=== PATIENT | female | born 1945 | race Caucasian/White ===

== ENCOUNTER 2023-11-09 16:25 | Inpatient (IN) ==
[2023-11-09] MEDS ORDERED: SODIUM CHLORIDE 0.9% 1,000 ML IV SCH (16:45)
[2023-11-09 17:05] LABS: Basophils # (auto) 0.05 K/uL (0.00-0.20); Basophils % (auto) 0.3 %; Eosinophils # (auto) 0.01 K/uL (0.00-0.50); Eosinophils % (auto) 0.1 %; Hemoglobin 15.3 g/dl (12.0-16.0); Immature Granulocytes # (auto) 0.13 K/uL (0.01-0.20); Immature Granulocytes % (auto) 0.8 %; Lymphocytes # (auto) 0.67 K/uL (1.20-3.40); Lymphocytes % (auto) 3.9 %; Mean Corpuscular Hemoglobin 31.2 pg (25.0-34.0); Mean Corpuscular Hgb Conc 31.9 g/dL (32.0-36.0); Mean Platelet Volume 10.1 fL (9.4-12.4); Monocytes # (auto) 1.33 K/uL (0.11-0.59); Monocytes % (auto) 7.7 %; Neutrophils # (auto) 15.08 K/uL (1.40-6.50); Neutrophils % (auto) 87.2 %; Platelet Count 157 K/uL (130-400); RDW Coefficient of Variation 12.8 % (11.5-14.5); RDW Standard Deviation 45.5 fL (36.4-46.3); White Blood Count 17.27 K/ul (4.8-10.8)
[2023-11-09] MEDS ORDERED: ACETAMINOPHEN 1,000 MG/100 ML VIAL IV STA (17:18)
[2023-11-09 17:20] LABS: Anion Gap 11 (3-11); BUN Creatinine Ratio 30.5 (10-20); Blood Urea Nitrogen 32 mg/dl (6-23); Calcium 9.8 mg/dl (8.6-10.3); Carbon Dioxide 25 mmol/L (21-32); Chloride 102 mmol/L (98-107); Est GFR (African American) 58.9 ml/min; Est GFR (Non-African American) 50.8 ml/min; Glucose 150 mg/dl (70-99(Fasting)); Potassium 3.8 mmol/L (3.5-5.1); Sodium 138 mmol/L (136-145)
[2023-11-09 17:23] LABS: Alanine Aminotransferase 19 U/L (7-52); Albumin Globulin Ratio 1.2 (0.9-2); Albumin Level 4.4 gm/dl (3.4-5.0); Alkaline Phosphatase 76 U/L (34-104); Aspartate Aminotransferase 23 U/L (13-39); Creatine Kinase 89 U/L (26-192); Globulin 3.7 gm/dl (2.5-4.0); Magnesium 0.8 mg/dl (1.7-2.4); Total Protein 8.1 gm/dl (6.0-8.3)
[2023-11-09 17:25] LABS: Troponin I High Sensitivity 16.8 pg/ml (0-14)
--- NOTE | 2023-11-09 17:29 | CT Scan Report ---
CT head/brain wo con CLINICAL HISTORY: fall Technique: Contiguous axial CT images of the head were acquired from the base of the skull to the aftab johan without intravenous contrast administration. Images were viewed in brain, subdural and bone [facility]. Automated dose lowering techniques and/or adjustment according to patient size were utilized for this exam. Comparison: None available at the time of this dictation. Findings: The ventricles, basal cisterns, and cerebral sulci are normal. There is no acute intracranial hemorrh age or evidence of acute territorial infarction. Neither mass effect, shift of the midline structures , nor abnormal extra-axial fluid collections are shown. Imaged portions of the paranasal sinuses and mastoid air cells are clear. The orbits appear normal. There are no acute fractures of the calvaria or scalp swelling. Impression: No acute intracranial hemorrhage, no evidence of acute territorial infarction or other acute intracra nial disease process. ACT 112: Negative or not required by law. Electronically signed by: Moi Sidhu M.D. 11/09/2023 5:28 PM
[2023-11-09 17:35] LABS: Thyroid Stimulating Hormone 0.629 uIu/ml (0.300-4.500)
--- NOTE | 2023-11-09 17:36 | CT Scan Report ---
CT cervical spine wo con CLINICAL HISTORY: fall TECHNIQUE: Multidetector row helical CT of the cervical spine was performed without administration of intravenous contrast. Coronal and sagittal reformations were obtained. Automated dose lowering techn iques and/or adjustment according to patient size were utilized for this exam. Comparison: None available at the time of this dictation. FINDINGS: No acute fractures or subluxations are identified. Degenerative changes are seen in the visualized sp ine. The alignment is normal. Soft tissues are unremarkable. IMPRESSION: Degenerative changes without evidence of acute bony injury. ACT 112: Negative or not required by law. Electronically signed by: Moi Sidhu M.D. 11/09/2023 5:33 PM
[2023-11-09] MEDS ORDERED: CEFEPIME 2,000 MG/20 ML VIAL IV STA (17:37)
--- NOTE | 2023-11-09 17:53 | XRay Report ---
XR chest 1V portable CLINICAL HISTORY: weakness TECHNIQUE: Single frontal radiograph of the chest was obtained. Comparison: None available at the time of this dictation. FINDINGS: No lines and tubes are seen. Calcified aortic knob is seen. The lungs are clear. No evidence of pleur al effusion or pneumothorax. IMPRESSION: No acute chest disease. ACT 112: Negative or not required by law. Electronically signed by: Moi Sidhu M.D. 11/09/2023 5:52 PM
--- NOTE | 2023-11-09 18:28 | CT Scan Report ---
CT thoracic spine wo con CLINICAL HISTORY: upper back pain, fall TECHNIQUE: Multidetector row helical CT of the thoracic spine was performed without administration of intravenous contrast. Coronal and sagittal reformations were obtained. Automated dose lowering techn iques and/or adjustment according to patient size were utilized for this exam. CT DOSE: 1009.64 mGy.cm Comparison: Comparison is made to CT chest radiation therapy 09/18/2023 FINDINGS: No acute fractures are identified. Compression deformity of the T12 vertebral body is again seen. Barbara tebral body alignment is within normal limits. Airspace opacity in the medial left lower lobe. IMPRESSION: 1. No acute fracture is seen. Old fracture of L1 is noted. 2. Airspace opacities in the medial left lower lobe may represent pneumonia and/or aspiration. ACT 112: Negative or not required by law. Electronically signed by: Moi Sidhu M.D. 11/09/2023 6:26 PM
[2023-11-09] MEDS: MAGNESIUM SULFATE / D5W 1 GM/100 ML BAG IV SCH ×3 (18:47→22:31)
[2023-11-09] MEDS ORDERED: VANCOMYCIN HCL 1,250 MG in SODIUM CHLORIDE 0.9% 500 ML IV ONE (18:49)
[2023-11-09] MEDS ORDERED: DOXYCYCLINE HYCLATE 100 MG in DEXTROSE 5% MINI-B 100 ML IV STA (18:49)
[2023-11-09] MEDS ORDERED: VANCOMYCIN CONSULT ACTIVE PRN (18:49)
[2023-11-09 19:02] LABS: Appearance Urine Cloudy (Clear); Bacteria Urine Automated Negative (Negative); Bilirubin Urine Negative (Negative); Blood Urine Negative (Negative); Color Urine Dark Yellow; Glucose Urine UA Negative (Negative); Ketones Urine 1+ (Negative); Leukocyte Esterase Urine Negative (Negative); Nitrite Urine Negative (Negative); Protein Urine 2+ (Negative); RBC Urine Automated 0-4 /hpf (0-4); Specific Gravity Urine 1.023 (1.000-1.030); Urobilinogen Urine Negative (Negative); pH Urine 5.5 (4.5-7.5)
[2023-11-09 19:17] LABS: Renal Epithelial Cells Urine 0-5 /lpf (0-5)
[2023-11-09 19:18] LABS: Epithelial Cell Urine Auto 20-30 /lpf (0-5)
[2023-11-09] MEDS ORDERED: LACTATED RINGER'S 1,000 ML IV ONE (19:51)
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
[2023-11-09 20:57] LABS: Adenovirus PCR Not Detected (NotDetected); Bordetella parapertussis PCR Not Detected (NotDetected); Bordetella pertussis PCR Not Detected (NotDetected); Chlamydia pneumoniae PCR Not Detected (NotDetected); Coronavirus 229E PCR Not Detected (NotDetected); Coronavirus CoV-2 (COVID19)PCR Not Detected (NotDetected); Coronavirus HKU1 PCR Not Detected (NotDetected); Coronavirus NL63 PCR Not Detected (NotDetected); Coronavirus OC43PCR Not Detected (NotDetected); Human Metapneumovirus PCR Not Detected (NotDetected); Influenza A PCR Not Detected (NotDetected); Influenza B PCR Not Detected (NotDetected); Mycoplasma pneumoniae PCR Not Detected (NotDetected); Parainfluenza Virus 1 PCR Not Detected (NotDetected); Parainfluenza Virus 2 PCR Not Detected (NotDetected); Parainfluenza Virus 3 PCR Not Detected (NotDetected); Parainfluenza Virus 4 PCR Not Detected (NotDetected); Respiratory Syncytial VirusPCR Not Detected (NotDetected); Rhinovirus/Enterovirus PCR Not Detected (NotDetected)
[2023-11-09] MEDS ORDERED: GLUCOSE 10 TAB/TUBE PO PRN (21:44)
[2023-11-09] MEDS ORDERED: NON-FORMULARY MEDICATION (Budesonide-Glycopyr-Formoterol [Breztri Aerosphere] 160-9-4.8 mc INH SCH (21:44)
[2023-11-09] MEDS ORDERED: DEXTROSE 50% 50 ML SYRINGE IV PRN (21:44)
[2023-11-09] MEDS ORDERED: GLUCOSE 40% GEL 15 GM TUBE PO PRN (21:44)
[2023-11-09] MEDS ORDERED: ACETAMINOPHEN 325 MG TAB PO PRN (21:44)
[2023-11-09] MEDS ORDERED: CARBOHYDRATES FOR HYPOGLYCEMIA PO PRN (21:44)
[2023-11-09] MEDS ORDERED: GLUCAGON FOR INJ 1 MG VIAL SQ PRN (21:44)
[2023-11-09] MEDS ORDERED: IPRATROPIUM BROMIDE NEB SOLN 0.02% 0.5MG/2.5ML VIAL INH PRN (21:44)
[2023-11-09] MEDS ORDERED: ONDANSETRON INJ 2 MG/ML 2 ML VIAL IV PRN (21:44)
[2023-11-09] MEDS: INSULIN ASPART PER UNIT CHARGE SC SCH (22:18)
[2023-11-09] MEDS: ENOXAPARIN INJ 40 MG/0.4 ML SYR SQ SCH (22:24)
[2023-11-09] MEDS: cefTRIAXone SODIUM 1,000 MG in DEXTROSE 5 % MINI-B 50 ML IV SCH (22:28)
[2023-11-09] MEDS: SODIUM CHLORIDE 0.9% 1,000 ML IV SCH (22:35)
[2023-11-09 23:40] LABS: Phosphorus 2.5 mg/dl (2.5-4.9)
[2023-11-09 23:47] LABS: Troponin I High Sensitivity 26.5 pg/ml (0-14)
[2023-11-10] MEDS: MAGNESIUM SULFATE / D5W 1 GM/100 ML BAG IV SCH ×3 (00:32→04:46)
[2023-11-10 04:01] LABS: Hematocrit (blood only) 39.7 % (37.0-47.0); Hemoglobin 12.6 g/dl (12.0-16.0); Mean Corpuscular Hgb Conc 31.7 g/dL (32.0-36.0); Mean Corpuscular Volume 97.5 fL (80.0-100.0); Platelet Count 128 K/uL (130-400); RDW Coefficient of Variation 12.7 % (11.5-14.5); RDW Standard Deviation 45.6 fL (36.4-46.3); Red Blood Count 4.07 M/uL (4.20-5.40); White Blood Count 16.33 K/ul (4.8-10.8)
[2023-11-10 04:17] LABS: BUN Creatinine Ratio 30.5 (10-20); Creatinine Clr Calc Pharmacy 48.3 ml/min; Est GFR (African American) 79.4 ml/min; Est GFR (Non-African American) 68.5 ml/min; Magnesium 2.1 mg/dl (1.7-2.4); Potassium 3.4 mmol/L (3.5-5.1)
[2023-11-10] MEDS ORDERED: VANCOMYCIN HCL 1,000 MG in SODIUM CHLORIDE 0.9% 250 ML IV SCH (06:00)
[2023-11-10] MEDS: DOXYCYCLINE HYCLATE 100 MG in DEXTROSE 5% MINI-B 100 ML IV SCH ×2 (06:36→17:11)
[2023-11-10] MEDS: SODIUM CHLORIDE 0.9% 1,000 ML IV SCH ×3 (06:37→21:58)
[2023-11-10 07:40] LABS: Estimated Average Glucose 137 mg/dl; Hemoglobin A1C 6.4 % (4.5-5.6)
[2023-11-10] MEDS: INSULIN ASPART PER UNIT CHARGE SC SCH ×4 (08:43→22:01)
--- NOTE | 2023-11-10 08:55 | Pharmacy Report ---
Pharmacy PK ABX Note - Date of Service November 10, 2023 - Assessment and Plan Assessment 78 year old F started on vancomycin. Presenting with confusion, generalized weakness and concerns for possible pneumonia. Blood culture and urine culture pending. Leukocytosis trending downward, afebrile. Day # 2 of antimicrobial therapy. Plan Vancomycin * Loading dose: 1250 mg iv x 1 (given in ER 11/09) * Maintenance dose: Started on vancomycin 1000 mg iv q 24 hours * Regimen is predicted to achieve target AUC/ANA of 400-600 mg/L.hr * Plan to order random vancomycin level if continued >48 hours Pharmacy will continue to follow and will adjust dose/frequency as necessary. Thank you. Pharmacy has transitioned to AUC monitoring for vancomycin. AUC/ANA is the preferred PK/PD target and is associated with decreased risk of nephrotoxicity compared to traditional trough targets.
[2023-11-10] MEDS: UMECLIDINIUM/VILANTEROL 62.5/25MCG 7 PUFFS/INHALER INH SCH (09:05)
[2023-11-10] MEDS: SERTRALINE HCL 50 MG TABLET PO SCH (09:05)
[2023-11-10] MEDS: FLUTICASONE FUROATE 200MCG 14 PUFFS/INHALER INH SCH (09:06)
--- NOTE | 2023-11-10 13:34 | Hospitalist Progress Note ---
Date of Service November 10, 2023 Assessment & Plan (1) Pneumonia: Plan: Possible cause for patient's confusion. She is presently afebrile, HD stable, non-toxic in appearance. Adequate oxygenation on room air. Elevated WBC=17.27 Unusual presentation with only encephalopathy, leukocytosis, infiltrates on imaging Clinically improved with treatment for pneumonia Started on ceftriaxone and doxycycline for community-acquired pneumonia Improving on this current regimen Will continue this current regimen Discontinue vancomycin. MRSA swab negative. Leukocytosis improving Encephalopathy resolved Consult PT and OT Follow blood culture results (2) Acute metabolic encephalopathy: Plan: Most likely due to pneumonia Resolved Per daughter, patient is back to her usual baseline (3) COPD (chronic obstructive pulmonary disease): Plan: Chronic. Adequate breath sounds on exam, no wheeze -Continue Umeclidinium/Vilanterol -Fluticasone daily -Albuterol PRN Patient still smokes. Smoking cessation advised (4) Hypertension: Plan: Holding antihypertensives for now - had some lower blood pressures in the ER. LR x 1L bolus given -Resume Losartan, Spironolactone and Verapamil in AM if blood pressure allows (5) Hypomagnesemia: Plan: Resolved Plan Ppx - Lovenox for DVT ppx Code - Full per discussion with patient Admission and Anticipated Discharge Date Admission Date: November 09, 2023 Subjective Patient feels better overall. Denies chest pain or shortness of breath. Daughter is at the bedside and says that her mental status is back to her usual baseline. She is no more confused. The patient tells me that she does not have an appetite and feels weak in general. Review of Systems Review of Systems: All systems reviewed & are unremarkable except as noted in Subjective Physical Exam Physical Exam: General: Awake, conversant Heart: S1, S2/regular rate and rhythm, no murmur rubs or gallops Lungs: Diminished breath sounds bilaterally. Normal effort Abdomen: Soft/nontender/nondistended. No hepatosplenomegaly Extremities: No clubbing/cyanosis. No edema Behavior: Appropriate, cooperative Results & Data Results & Data Vital Signs (Past 12 Hours) Vital Signs Temp Pulse Pulse Resp BP Pulse Ox O2 Del Method 11/10/23 11:44 37.5 C 74 16 95/55 L 92 Room Air 11/10/23 08:20 37.0 C 86 18 106/45 L 98 Room Air 11/10/23 07:56 Room Air 11/10/23 05:58 76 11/10/23 04:46 37.3 C 75 20 110/68 93 Room Air Laboratory Results Abnormal lab results 11/09/23 11/09/23 11/09/23 Range/Units 16:43 18:28 22:14 WBC 17.27 H (4.8-10.8) K/ul RBC (4.20-5.40) M/uL Hct 48.0 H (37.0-47.0) % MCHC 31.9 L (32.0-36.0) g/dL Plt Count (130-400) K/uL Neut # (Auto) 15.08 H (1.40-6.50) K/uL Lymph # (Auto) 0.67 L (1.20-3.40) K/uL Armstrong # (Auto) 1.33 H (0.11-0.59) K/uL Potassium (3.5-5.1) mmol/L Chloride (98-107) mmol/L BUN 32 H (6-23) mg/dl BUN/Creatinine Ratio 30.5 H (10-20) Glucose 150 H (70-99(Fasting)) mg/dl POC Glucose 164 H (70-99) mg/dl Hemoglobin A1c (4.5-5.6) % Calcium (8.6-10.3) mg/dl Magnesium 0.8 L* (1.7-2.4) mg/dl Troponin I High Sens 16.8 H (0-14) pg/ml Urine Appearance Cloudy A (Clear) Urine Protein 2+ H (Negative) Urine Ketones 1+ H (Negative) Urine WBC (Auto) 5-10 H (0-5) /hpf U Epithel Cells (Auto) 20-30 H (0-5) /lpf Granular Casts 1-5 H (0) /lpf 11/09/23 11/10/23 11/10/23 Range/Units 22:25 03:39 09:32 WBC 16.33 H (4.8-10.8) K/ul RBC 4.07 L (4.20-5.40) M/uL Hct (37.0-47.0) % MCHC 31.7 L (32.0-36.0) g/dL Plt Count 128 L (130-400) K/uL Neut # (Auto) (1.40-6.50) K/uL Lymph # (Auto) (1.20-3.40) K/uL Armstrong # (Auto) (0.11-0.59) K/uL Potassium 3.4 L (3.5-5.1) mmol/L Chloride 108 H (98-107) mmol/L BUN 25 H (6-23) mg/dl BUN/Creatinine Ratio 30.5 H (10-20) Glucose 147 H (70-99(Fasting)) mg/dl POC Glucose (70-99) mg/dl Hemoglobin A1c 6.4 H (4.5-5.6) % Calcium 8.0 L (8.6-10.3) mg/dl Magnesium (1.7-2.4) mg/dl Troponin I High Sens 26.5 H 25.7 H 32.3 H (0-14) pg/ml Urine Appearance (Clear) Urine Protein (Negative) Urine Ketones (Negative) Urine WBC (Auto) (0-5) /hpf U Epithel Cells (Auto) (0-5) /lpf Granular Casts (0) /lpf 11/10/23 Range/Units 12:30 WBC (4.8-10.8) K/ul RBC (4.20-5.40) M/uL Hct (37.0-47.0) % MCHC (32.0-36.0) g/dL Plt Count (130-400) K/uL Neut # (Auto) (1.40-6.50) K/uL Lymph # (Auto) (1.20-3.40) K/uL Armstrong # (Auto) (0.11-0.59) K/uL Potassium (3.5-5.1) mmol/L Chloride (98-107) mmol/L BUN (6-23) mg/dl BUN/Creatinine Ratio (10-20) Glucose (70-99(Fasting)) mg/dl POC Glucose 118 H (70-99) mg/dl Hemoglobin A1c (4.5-5.6) % Calcium (8.6-10.3) mg/dl Magnesium (1.7-2.4) mg/dl Troponin I High Sens (0-14) pg/ml Urine Appearance (Clear) Urine Protein (Negative) Urine Ketones (Negative) Urine WBC (Auto) (0-5) /hpf U Epithel Cells (Auto) (0-5) /lpf Granular Casts (0) /lpf Diagnostic Findings Cervical Spine CT 11/09/23 16:44 CT cervical spine wo con CLINICAL HISTORY: fall TECHNIQUE: Multidetector row helical CT of the cervical spine was performed without administration of intravenous contrast. Coronal and sagittal reformations were obtained. Automated dose lowering techniques and/or adjustment according to patient size were utilized for this exam. Comparison: None available at the time of this dictation. FINDINGS: No acute fractures or subluxations are identified. Degenerative changes are seen in the visualized spine. The alignment is normal. Soft tissues are unremarkable. IMPRESSION: Degenerative changes without evidence of acute bony injury. ACT 112: Negative or not required by law. Electronically signed by: Moi Sidhu M.D. 11/09/2023 5:33 PM Chest X-Ray 11/09/23 16:44 XR chest 1V portable CLINICAL HISTORY: weakness TECHNIQUE: Single frontal radiograph of the chest was obtained. Comparison: None available at the time of this dictation. FINDINGS: No lines and tubes are seen. Calcified aortic knob is seen. The lungs are clear. No evidence of pleural effusion or pneumothorax. IMPRESSION: No acute chest disease. ACT 112: Negative or not required by law. Electronically signed by: Moi Sidhu M.D. 11/09/2023 5:[address] 11/09/23 16:44 CT head/brain wo con CLINICAL HISTORY: fall Technique: Contiguous axial CT images of the head were acquired from the base of the skull to the vertex without intravenous contrast administration. Images were viewed in brain, subdural and bone windows. Automated dose lowering techniques and/or adjustment according to patient size were utilized for this exam. Comparison: None available at the time of this dictation. Findings: The ventricles, basal cisterns, and cerebral sulci are normal. There is no acute intracranial hemorrhage or evidence of acute territorial infarction. Neither mass effect, shift of the midline structures, nor abnormal extra-axial fluid collections are shown. Imaged portions of the paranasal sinuses and mastoid air cells are clear. The orbits appear normal. There are no acute fractures of the calvaria or scalp swelling. Impression: No acute intracranial hemorrhage, no evidence of acute territorial infarction or other acute intracranial disease process. ACT 112: Negative or not required by law. Electronically signed by: Moi Sidhu M.D. 11/09/2023 5:[address] 11/09/23 17:16 CT thoracic spine wo con CLINICAL HISTORY: upper back pain, fall TECHNIQUE: Multidetector row helical CT of the thoracic spine was performed without administration of intravenous contrast. Coronal and sagittal reformations were obtained. Automated dose lowering techniques and/or adjustment according to patient size were utilized for this exam. CT DOSE: 1009.64 mGy.cm Comparison: Comparison is made to CT chest radiation therapy 09/18/2023 FINDINGS: No acute fractures are identified. Compression deformity of the T12 vertebral body is again seen. Vertebral body alignment is within normal limits. Airspace opacity in the medial left lower lobe. IMPRESSION: 1. No acute fracture is seen. Old fracture of L1 is noted. 2. Airspace opacities in the medial left lower lobe may represent pneumonia and/or aspiration. ACT 112: Negative or not required by law. Electronically signed by: Moi Sidhu M.D. 11/09/2023 6:26 PM PG Care Time/CCT Total # of Minutes Spent Total Time Spent with Patient: Total time spent is greater than 50% in coordination of care (as documented) at patient's floor/unit and/or counseling patient: Coding Level of Care Code 76008 SUB INP/OBS CARE 2/35MIN Diagnoses Pneumonia J18.9 Acute metabolic encephalopathy G93.41 COPD (chronic obstructive pulmonary disease) J44.9 Hypertension I10 Hypomagnesemia E83.42
[2023-11-10] MEDS: ALBUTEROL 0.083% NEBU SOLN 3 ML VIAL NEB PRN (16:13)
--- NOTE | 2023-11-10 16:26 | Electrocardiogram Report ---
Test Reason : Blood Pressure : / mmHG Vent. Rate : 122 BPM Atrial Rate : 122 BPM P-R Int : 152 ms QRS Dur : 076 ms QT Int : 282 ms P-R-T Axes : 078 -69 090 degrees QTc Int : 401 ms Sinus tachycardia Possible Left atrial enlargement Left anterior fascicular block Poor R wave progression, consider anterior MD vs. lead placement vs. LVH Abnormal ECG When compared with ECG of 14-AUG-2023 08:43, Vent. rate has increased BY 59 BPM Confirmed by Todd Fregoso ([id number]) on 11/10/2023 4:26:12 PM Referred By: REFERRED SELF Confirmed By:Chon Fregoso
[2023-11-10] MEDS: ENOXAPARIN INJ 40 MG/0.4 ML SYR SQ SCH (20:24)
[2023-11-10] MEDS: guaiFENesin 600 MG TABCR PO SCH (20:25)
[2023-11-10] MEDS: cefTRIAXone SODIUM 1,000 MG in DEXTROSE 5 % MINI-B 50 ML IV SCH (21:58)
[2023-11-11] MEDS: SODIUM CHLORIDE 0.9% 1,000 ML IV SCH ×3 (06:05→22:53)
[2023-11-11] MEDS: DOXYCYCLINE HYCLATE 100 MG in DEXTROSE 5% MINI-B 100 ML IV SCH ×2 (06:06→18:22)
[2023-11-11 06:15] LABS: Hemoglobin 11.1 g/dl (12.0-16.0); Mean Corpuscular Hemoglobin 31.7 pg (25.0-34.0); Mean Corpuscular Hgb Conc 32.6 g/dL (32.0-36.0); Mean Corpuscular Volume 97.1 fL (80.0-100.0); Mean Platelet Volume 10.5 fL (9.4-12.4); Platelet Count 119 K/uL (130-400); RDW Coefficient of Variation 12.8 % (11.5-14.5); White Blood Count 9.22 K/ul (4.8-10.8)
[2023-11-11 06:32] LABS: BUN Creatinine Ratio 22.2 (10-20); Calcium 7.6 mg/dl (8.6-10.3); Est GFR (Non-African American) 80.2 ml/min; Potassium 3.5 mmol/L (3.5-5.1)
[2023-11-11] MEDS: FLUTICASONE FUROATE 200MCG 14 PUFFS/INHALER INH SCH (09:04)
[2023-11-11] MEDS: SERTRALINE HCL 50 MG TABLET PO SCH (09:05)
[2023-11-11] MEDS: guaiFENesin 600 MG TABCR PO SCH ×2 (09:05→21:30)
[2023-11-11] MEDS: UMECLIDINIUM/VILANTEROL 62.5/25MCG 7 PUFFS/INHALER INH SCH (09:05)
[2023-11-11] MEDS: INSULIN ASPART PER UNIT CHARGE SC SCH ×4 (09:13→21:31)
--- NOTE | 2023-11-11 16:01 | Hospitalist Progress Note ---
Date of Service November 11, 2023 Assessment & Plan (1) Pneumonia: Plan: Possible cause for patient's confusion. She is presently afebrile, HD stable, non-toxic in appearance. Adequate oxygenation on room air. Elevated WBC=17.27 Unusual presentation with only encephalopathy, leukocytosis, infiltrates on imaging Clinically improved with treatment for pneumonia Started on ceftriaxone and doxycycline for community-acquired pneumonia Improving on this current regimen Will continue this current regimen Discontinued vancomycin. MRSA swab negative. Leukocytosis resolved Encephalopathy resolved Consult PT and OT Follow blood culture results Check rest and exercise O2 (2) Acute metabolic encephalopathy: Plan: Most likely due to pneumonia Resolved Per daughter, patient is back to her usual baseline (3) COPD (chronic obstructive pulmonary disease): Plan: Chronic. Adequate breath sounds on exam, no wheeze -Continue Umeclidinium/Vilanterol -Fluticasone daily -Albuterol PRN Patient still smokes. Smoking cessation advised (4) Hypertension: Plan: Holding antihypertensives for now - had some lower blood pressures in the ER. LR x 1L bolus given -Resume Losartan, Spironolactone and Verapamil in AM if blood pressure allows (5) Hypomagnesemia: Plan: Resolved Plan Ppx - Lovenox for DVT ppx Code - Full per discussion with patient Admission and Anticipated Discharge Date Admission Date: November 09, 2023 Subjective Patient feels better overall. Says that she had been experiencing lower chest/upper back pain which is improving. Review of Systems Review of Systems: All systems reviewed & are unremarkable except as noted in Subjective Physical Exam Physical Exam: General: Awake, conversant Heart: S1, S2/regular rate and rhythm, no murmur rubs or gallops Lungs: Diminished breath sounds bilaterally. Normal effort Abdomen: Soft/nontender/nondistended. No hepatosplenomegaly Extremities: No clubbing/cyanosis. No edema Behavior: Appropriate, cooperative Results & Data Results & Data Vital Signs (Past 12 Hours) Vital Signs Temp Pulse Pulse Resp BP BP Pulse Ox 11/11/23 15:50 36.9 C 66 18 128/66 92 11/11/23 15:14 92 11/11/23 13:37 11/11/23 08:13 62 11/11/23 08:00 11/11/23 07:41 36.8 C 57 L 16 130/59 L 93 11/11/23 04:17 37.0 C 71 20 112/67 92 Pulse Ox Pulse Ox O2 Del Method O2 Flow Rate O2 Flow Rate 11/11/23 15:50 Room Air 11/11/23 15:14 11/11/23 13:37 90 88 L 0 0 11/11/23 08:13 11/11/23 08:00 Room Air 11/11/23 07:41 Room Air 11/11/23 04:17 Room Air PG Care Time/CCT Total # of Minutes Spent Total Time Spent with Patient: Total time spent is greater than 50% in coordination of care (as documented) at patient's floor/unit and/or counseling patient: Coding Level of Care Code 05306 SUB INP/OBS CARE 2/35MIN Diagnoses Pneumonia J18.9 Acute metabolic encephalopathy G93.41 COPD (chronic obstructive pulmonary disease) J44.9 Hypertension I10 Hypomagnesemia E83.42
[2023-11-11] MEDS: ENOXAPARIN INJ 40 MG/0.4 ML SYR SQ SCH (21:29)
[2023-11-11] MEDS: cefTRIAXone SODIUM 1,000 MG in DEXTROSE 5 % MINI-B 50 ML IV SCH (21:37)
[2023-11-11] MEDS: ALBUTEROL 0.083% NEBU SOLN 3 ML VIAL NEB PRN (21:55)
[2023-11-12] MEDS: SODIUM CHLORIDE 0.9% 1,000 ML IV SCH (03:10)
[2023-11-12 04:16] VITALS: TEMP 97.7
[2023-11-12] MEDS: DOXYCYCLINE HYCLATE 100 MG in DEXTROSE 5% MINI-B 100 ML IV SCH (05:40)
[2023-11-12 06:12] LABS: Hematocrit (blood only) 36.2 % (37.0-47.0); Hemoglobin 12.1 g/dl (12.0-16.0); Mean Corpuscular Hgb Conc 33.4 g/dL (32.0-36.0); Mean Corpuscular Volume 95.8 fL (80.0-100.0); Mean Platelet Volume 10.4 fL (9.4-12.4); Platelet Count 139 K/uL (130-400); RDW Coefficient of Variation 12.8 % (11.5-14.5); RDW Standard Deviation 44.9 fL (36.4-46.3); Red Blood Count 3.78 M/uL (4.20-5.40); White Blood Count 5.62 K/ul (4.8-10.8)
[2023-11-12 06:27] LABS: BUN Creatinine Ratio 20.2 (10-20); Calcium 7.8 mg/dl (8.6-10.3); Creatinine Clr Calc Pharmacy 47.2 ml/min; Est GFR (African American) 77.2 ml/min; Est GFR (Non-African American) 66.6 ml/min; Potassium 3.9 mmol/L (3.5-5.1)
[2023-11-12] MEDS ORDERED: VERAPAMIL HCL 240 MG TABCR PO SCH (09:00)
[2023-11-12] MEDS ORDERED: LOSARTAN POTASSIUM 50 MG TAB PO SCH (09:00)
[2023-11-12] MEDS: guaiFENesin 600 MG TABCR PO SCH (09:27)
[2023-11-12] MEDS: UMECLIDINIUM/VILANTEROL 62.5/25MCG 7 PUFFS/INHALER INH SCH (09:27)
[2023-11-12] MEDS: SERTRALINE HCL 50 MG TABLET PO SCH (09:27)
[2023-11-12] MEDS: FLUTICASONE FUROATE 200MCG 14 PUFFS/INHALER INH SCH (09:28)
[2023-11-12] MEDS: INSULIN ASPART PER UNIT CHARGE SC SCH (09:31)
--- NOTE | 2023-11-12 11:02 | Discharge Summary ---
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 Patient was at home today in her usual state of health. Later in the day her daughter found her sitting in the middle of the living room floor - she was confused and generally weak. She has had some cough and shortness of breath. She admits to a subjective fever with sweating today prior to arrival. Otherwise she denies chest pain, palpitations, abdominal pain, nausea, vomiting, diarrhea or constipation. In the ER she is afebrile, tachycardic, adequate oxygenation on room air ER Course. Tylenol Cefepime Doxycycline Vancomycin Admission Exam Per Admitting Provider General: patient resting comfortably, NAD, non-toxic in appearance, AA&O x 3 Skin: warm, dry, intact, no rashes or lesions HEENT: NC/AT, PERRL, EOMI, anicteric sclera, conjunctiva without injection, external ear normal to inspection and nontender, nares patent, moist mucus membranes, dentition intact, no oropharyngeal lesions, neck supple, trachea midline, no LAD, no thyromegaly, no JVD Heart: +S1/S2, regular, tachycardic, no m/r/g Lungs: equal air entry bilaterally, diminshed breath sounds in left base with dullness to percussion Abd: +BS, soft, NT/ND, no masses/organomegaly/ascites Ext: warm, 2+ pulses in UE/LE bilaterally, no clubbing/cyanosis or edema Neuro: nonfocal, patient AA&O x 4, speech intact, no facial droop, moving all extremities on command with equal strength 5/5 Principal Diagnosis Left middle lobe community-acquired pneumonia Acute metabolic encephalopathy Discharge Exam General: Awake, conversant Heart: S1, S2/regular rate and rhythm, no murmur rubs or gallops Lungs: Diminished breath sounds bilaterally. Normal effort Abdomen: Soft/nontender/nondistended. No hepatosplenomegaly Extremities: No clubbing/cyanosis. No edema Behavior: Appropriate, cooperative Discharge Data Allergies Allergy/AdvReac Type Severity Reaction Status Date / Time amlodipine [From Norvasc] Allergy Severe Palpitation Verified 09/26/23 13:59 s furosemide [From Lasix] Allergy Severe Chest Pain Verified 09/26/23 13:59 Consultations 11/09/23 19:26 ED Decision to Admit Stat Ordered Studies 11/09/23 16:44 CT cervical spine wo con Stat CT head/brain wo con Stat 11/09/23 17:16 CT thoracic spine wo con Stat Hospital Course (1) Pneumonia: Possible cause for patient's confusion. She is presently afebrile, HD stable, non-toxic in appearance. Adequate oxygenation on room air. Elevated WBC=17.27 Unusual presentation with only encephalopathy, leukocytosis, infiltrates on imaging Clinically improved with treatment for pneumonia Started on ceftriaxone and doxycycline for community-acquired pneumonia. Will switch to p.o. Keflex and doxycycline to complete the course Improving on this current regimen Discontinued vancomycin. MRSA swab negative. Leukocytosis resolved Encephalopathy resolved PT/OT recommended home health services Blood cultures negative She is needing 3 L of oxygen on ambulation which has been arranged for (2) Acute metabolic encephalopathy: Most likely due to pneumonia Resolved Per daughter, patient is back to her usual baseline (3) COPD (chronic obstructive pulmonary disease): Chronic. Adequate breath sounds on exam, no wheeze -Continue Umeclidinium/Vilanterol -Fluticasone daily -Albuterol PRN Patient still smokes. Smoking cessation advised (4) Hypertension: Was holding all antihypertensives because of initial low blood pressures Today blood pressure was creeping up and thus was started on verapamil and losartan Continue to hold hydrochlorothiazide and spironolactone until seen by PCP outpatient (5) Hypomagnesemia: Resolved Plan Discharge to home with home health services today Total Time Total Time Spent Total Time Spent (In Minutes): 35 Discharge Plan Discharge Items Patient Disposition: Home - Home Health Services Reason For Visit: PNEUMONIA, WEAKNESS Discharge Diagnosis: Left middle lobe community-acquired pneumonia Acute metabolic encephalopathy Activity: Resume your previous activity Non-emergency contact: Primary Care Provider Call non-emergency contact if: you have any medication questions and your symptoms worsen Follow-up/Referrals: Augusto Romano DO [Primary Care Provider] - 11/14/23 11:15 am Diet: Heart Healthy Addtl Attending Provider Instructions: Advised to follow-up with PCP in 1 week Pending Studies at Discharge: No Stand-Alone Forms: My [employer], Smoking Cessation Medications and DC Order Prescriptions: New cephalexin 500 mg capsule 500 mg PO BID 4 Days Qty: 8 0RF doxycycline monohydrate 100 mg capsule 100 mg PO BID 3 Days Qty: 6 0RF Continued metformin 500 mg tablet 500 mg PO BID 90 Days Qty: 180 3RF ipratropium bromide 0.02 % solution 2.5 ml inhalation Q6H PRN (Reason: shortness of breath or wheezing) Qty: 75 1RF losartan 50 mg tablet 50 mg PO BID Qty: 60 2RF Breztri Aerosphere 160-9-4.8 mcg/actuation HFA aerosol inhaler 2 inh inhalation BID Qty: 10.7 3RF albuterol sulfate 90 mcg/actuation HFA aerosol inhaler 2 puff inhalation Q4H PRN (Reason: shortness of breath or wheezing) Qty: 8.5 3RF cetirizine 10 mg Tablet 10 mg PO QAM PRN (Reason: allergies) psyllium husk [Metamucil] 0.4 gram Capsule 1.2 g PO QAM sertraline 25 mg tablet 25 mg PO QAM verapamil 240 mg capsule,ext rel. pellets 24 hr 240 mg PO QAM Held potassium chloride 10 mEq capsule, extended release 10 meq PO DAILY PRN (Reason: muscle cramps) Hold Instructions: Resume on 11/19/23. Hold until seen by PCP spironolactone 25 mg tablet 25 mg PO QAM Hold Instructions: Resume on 11/19/23. Hold until seen by PCP hydrochlorothiazide 25 mg tablet 25 mg PO QAM Hold Instructions: Resume on 11/19/23. Hold until seen by PCP Discharge Orders: Discharge Order (Routine); Ordered 11/12/23 Ordered By: Arnol Siddiqui/Other Patient Handouts: Managing Type 2 Diabetes Admission Data Admit Date/Time: 11/09/23 19:50 Attending Provider: Arnol Ayers Admit Provider: Alysha Lazar Primary Care Provider: Augusto Romano Other Providers: Alysha Lazar Other Interventions: Discharge Summary Assessment (RN) Last Done: 11/12/23 11:49 Coding Level of Care Code 04253 INP/OBS DISCH >30 MIN Diagnoses Pneumonia J18.9 Acute metabolic encephalopathy G93.41 COPD (chronic obstructive pulmonary disease) J44.9 Hypertension I10 Hypomagnesemia E83.42
[2023-11-12 11:55] VITALS: BP 126/65; PULSE 71; RESP 20; O2SAT 93
== END 2023-11-12 12:41 | disposition home or self-care (01) | DRG 193 ==
LOC: ED 16:25 → SUATTDRO 19:50 → EDINP 19:50 → 2N 23:30
DX: Z85.118 Personal history of other malignant neoplasm of bronchus and lung; G93.41 Metabolic encephalopathy; Z88.8 Allergy status to other drugs, medicaments and biological substances; R79.89 Other specified abnormal findings of blood chemistry; E83.42 Hypomagnesemia; J18.9 Pneumonia, unspecified organism; N18.31 Chronic kidney disease, stage 3a; J44.0 Chronic obstructive pulmonary disease with (acute) lower respiratory infection; I12.9 Hypertensive chronic kidney disease with stage 1 through stage 4 chronic kidney disease, or unspecified chronic kidney disease; Z79.84 Long term (current) use of oral hypoglycemic drugs; Z92.3 Personal history of irradiation; F17.210 Nicotine dependence, cigarettes, uncomplicated; E11.9 Type 2 diabetes mellitus without complications

== ENCOUNTER 2025-07-15 16:13 | Observation (INO) ==
[2025-07-15 16:47] LABS: Hematocrit (blood only) 37.9 % (37.0-47.0); Hemoglobin 12.2 g/dl (12.0-16.0); Immature Granulocytes # (auto) 0.02 K/uL (0.01-0.20); Immature Granulocytes % (auto) 0.2 %; Mean Corpuscular Hemoglobin 32.9 pg (25.0-34.0); Mean Corpuscular Volume 102.2 fL (80.0-100.0); Platelet Count 224 K/uL (130-400); RDW Standard Deviation 44.8 fL (36.4-46.3); Red Blood Count 3.71 M/uL (4.20-5.40); White Blood Count 8.54 K/ul (4.8-10.8)
[2025-07-15 17:03] LABS: Alanine Aminotransferase 14.0 U/L (7-52); Albumin Globulin Ratio 1.3 (0.9-2); Albumin Level 4.5 gm/dl (3.4-5.0); Alkaline Phosphatase 81.0 U/L (34-104); Anion Gap 9.0 (3-11); Bilirubin,Total 0.6 mg/dl (0.2-1.0); Blood Urea Nitrogen 44.0 mg/dl (6-23); Calcium 9.8 mg/dl (8.6-10.3); Carbon Dioxide 25.0 mmol/L (21-32); Chloride 106.0 mmol/L (98-107); Creatinine Clr Calc Pharmacy 21.3 ml/min; Globulin 3.6 gm/dl (2.5-4.0); Glucose 129.0 mg/dl (70-99(Fasting)); Potassium 5.6 mmol/L (3.5-5.1); Sodium 140.0 mmol/L (136-145); Total Protein 8.1 gm/dl (6.0-8.3)
[2025-07-15 17:13] LABS: INR 0.9 (0.9-1.1); Partial Thromboplastin Time 23 Seconds (21-31); Prothrombin Time 10.3 Seconds (9.0-12.0)
[2025-07-15 17:52] LABS: Magnesium 1.2 mg/dl (1.7-2.4)
[2025-07-15] MEDS: MAGNESIUM SULFATE / D5W 1 GM/100 ML BAG IV SCH (18:00)
[2025-07-15] MEDS: CALCIUM GLUCONATE 1,000 MG/60 ML BAG IV STA (18:28)
[2025-07-15] MEDS: SODIUM CHLORIDE 0.9% 500 ML IV SCH (19:27)
--- NOTE | 2025-07-15 20:05 | XRay Report ---
Clinical History: Chest pain and shortness of breath Technique: A frontal view of the chest was obtained Findings: There are no confluent pulmonary infiltrates. The heart size is within normal limits. No pleural effusion or pneumothorax is seen. There is no definite pulmonary nodule. No fracture is noted. No foreign body is seen Impression: No active disease Electronically signed by Brian Hanson 07-15-2025 8:00 PM
--- NOTE | 2025-07-15 20:11 | CT Scan Report ---
COMPARISON:CT chest which included the upper abdomen 01/06/2025 FINDINGS: CT ABDOMEN: LUNG BASES:Minor scarring changes in the right middle lobe and lingula. LIVER: No worrisome hepatic masses. SPLEEN: The spleen is normal in size. No splenic masses. GALLBALDDER:Cholecystectomy. Common bile duct measures 1.2 cm. KIDNEYS: No hydronephrosis or nephrolithiasis. No worrisome renal masses. Bilateral renal cysts. The largest right renal cyst measures 3.2 x 4.6 cm. The largest left renal cyst measures 6.2 x 6.0 cm. PANCREAS: unremarkable. ADRENAL GLANDS:Low-attenuation left adrenal gland noduleMeasures 2.2 x 1.1 cm, likely representing an adenoma. PROXIMAL BOWEL: No small bowel obstruction. VASCULAR: No evidence of abdominal aortic aneurysm. BONES:Scoliotic and degenerative changes of the lumbar spine. Severe oldcompression fracture of T12 with minimal retropulsion of the superior endplate. OTHER: Unremarkable. CT PELVIS: URINARY BLADDER: Unremarkable. PELVIC ORGANS: Unremarkable. DISTAL BOWEL: Mild to moderate retained stool in the colon. Multiple colonic diverticula. It appears that there is inflamed diverticulum arising from the medial aspect of theAscending colon for example series 3 image 144, series 300 image 33. Small focal diverticulitis changes here may be present. BONES: intact. OTHER: No significant lymphadenopathy. No free fluid. IMPRESSION: Question of focal Area of diverticulitis involving the ascending colon near the hepatic flexure. Additional diverticulosis changes most pronounced in the region of the sigmoid colon. Electronically signed by Nadiya Hill 07-15-2025 8:09 PM
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
[2025-07-15] MEDS: cefTRIAXone SODIUM 2,000 MG/50 ML BAG IV STA (21:35)
[2025-07-15] MEDS: metroNIDAZOLE 500 MG/100 ML BAG IV STA (22:05)
[2025-07-16] MEDS ORDERED: CARBOHYDRATES FOR HYPOGLYCEMIA PO PRN
[2025-07-16] MEDS ORDERED: GLUCAGON FOR INJ 1 MG VIAL SQ PRN
[2025-07-16] MEDS ORDERED: ALBUT/IPRATROP 3MG/0.5MG NEB 3 ML VIAL INH PRN
[2025-07-16] MEDS ORDERED: IPRATROPIUM BROMIDE NEB SOLN 0.02% 0.5MG/2.5ML VIAL INH PRN
[2025-07-16] MEDS ORDERED: ALBUTEROL HFA 8 GM INHALER INH PRN
[2025-07-16] MEDS ORDERED: GLUCOSE 40% GEL 15 GM TUBE PO PRN
[2025-07-16] MEDS ORDERED: DEXTROSE 50% 50 ML SYRINGE IV PRN
[2025-07-16] MEDS ORDERED: GLUCOSE 10 TAB/TUBE PO PRN
[2025-07-16] MEDS: MAGNESIUM SULFATE / D5W 1 GM/100 ML BAG IV ONE (00:24)
[2025-07-16 00:35] LABS: Anion Gap 8.0 (3-11); Blood Urea Nitrogen 42.0 mg/dl (6-23); Calcium 9.3 mg/dl (8.6-10.3); Carbon Dioxide 24.0 mmol/L (21-32); Chloride 108.0 mmol/L (98-107); Creatinine Clr Calc Pharmacy 25.2 ml/min; Glucose 106.0 mg/dl (70-99(Fasting)); Potassium 5.1 mmol/L (3.5-5.1); Sodium 140.0 mmol/L (136-145)
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
[2025-07-16] MEDS: MAGNESIUM CHLORIDE W/CALCIUM 64MG DELAYED REL TAB PO SCH (00:57)
[2025-07-16] MEDS: LACTATED RINGER'S 1,000 ML IV SCH (03:02)
[2025-07-16] MEDS: metroNIDAZOLE 500 MG/100 ML BAG IV SCH (05:33)
[2025-07-16 06:29] LABS: Appearance Urine Clear (Clear); Glucose Urine UA Negative (Negative)
[2025-07-16 06:42] LABS: Hematocrit (blood only) 32.3 % (37.0-47.0); Hemoglobin 10.2 g/dl (12.0-16.0); Immature Granulocytes # (auto) 0.02 K/uL (0.01-0.20); Immature Granulocytes % (auto) 0.3 %; Mean Corpuscular Hemoglobin 32.3 pg (25.0-34.0); Mean Corpuscular Volume 102.2 fL (80.0-100.0); Platelet Count 177 K/uL (130-400); RDW Standard Deviation 45.1 fL (36.4-46.3); Red Blood Count 3.16 M/uL (4.20-5.40); White Blood Count 6.67 K/ul (4.8-10.8)
[2025-07-16 07:19] LABS: Anion Gap 6.0 (3-11); Calcium 8.7 mg/dl (8.6-10.3); Carbon Dioxide 24.0 mmol/L (21-32); Chloride 109.0 mmol/L (98-107); Magnesium 2.0 mg/dl (1.7-2.4); Potassium 5.1 mmol/L (3.5-5.1); Sodium 139.0 mmol/L (136-145)
[2025-07-16 07:25] LABS: Blood Urea Nitrogen 41.0 mg/dl (6-23); Creatinine Clr Calc Pharmacy 28.9 ml/min; Glucose 99.0 mg/dl (70-99(Fasting))
[2025-07-16] MEDS: ESCITALOPRAM OXALATE 10 MG TAB PO SCH (08:42)
[2025-07-16] MEDS: FLUTICASONE FUROATE 200MCG 14 PUFFS/INHALER INH SCH (08:44)
[2025-07-16] MEDS: UMECLIDINIUM/VILANTEROL 62.5/25MCG 7 PUFFS/INHALER INH SCH (08:44)
[2025-07-16] MEDS: VERAPAMIL HCL 240 MG TABCR PO SCH (08:47)
[2025-07-16] MEDS: INSULIN ASPART PER UNIT CHARGE SC SCH (08:48)
[2025-07-16] MEDS ORDERED: NON-FORMULARY MEDICATION (Budesonide-Glycopyr-Formoterol [Breztri Aerosphere] 160-9-4.8 mc INH SCH (09:00)
[2025-07-16] MEDS: INFLUENZA VACC TS2025-26(65y+)/PF (IIV3) 0.5mL Syr IM ONE (17:50)
--- NOTE | 2025-07-16 18:53 | Hospitalist Progress Note ---
Date of Service July 16, 2025 Assessment & Plan (1) Hypomagnesemia: (2) Acute kidney injury: (3) Hyperkalemia: (4) Diverticulitis: Plan [id number] female with past medical history of DNR/DNI @ home, former tobacco abuse with subsequent diagnosis of chronic hypoxic respiratory failure due to end-stage COPD on 3-4 liters/minute O2 via nasal cannula at home, and right lung carcinoma s/p XRT (09/2023), type II DM, CKD stage III with baseline creatinine range, 1.30 - 1.35 mg/dL (02/18/2025 - 06/01/2025), GERD, rheumatic fever, and chronic diastolic CHF with preserved LVEF 60% and grade I LV diastolic dysfunction (as noted on 05/02/2021, 2:07pm TTE, CARDS Dr. Frederic Olivo). 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 CT abd/pelvis without IV contrast (07/15/2025) revealed acute diverticulitis involving the ascending colon near the hepatic flexure. #hypomagnesemiamag 1.2, chronically depleted and patient has been following with nephrology. Likely 2/2 chronic GI losses with chronic diarrhea. Total of 3G IV magnesium continue magnesium supplement Repeat magnesium midnight and with a.m. labs #JUSTIN/hyperkalemiaCr 1.42 -> 1.94, K+ 5.6, BUN 44. Possibly in the setting of acute dehydration/hypovolemia. EKG does not show any T wave changes. Does endorse dysuria and lower abdominal pain, UA ordered. - 500 mL NSS in ED followed by LR at 125 mL/hr x 2 L Calcium 1G IV in the ED Repeat BMP in the 07/17/2025 am. monitor telemetry for any arrhythmia continue holding OFF losartan and metformin; patient stated no longer on diuretics since 05/2025 #DiverticulitisAP CT showed concern for acute diverticulitis status in ascending colon near hepatic flexure. No leukocytosis, afebrile. Patient with worsening of chronic diarrhea. Rocephin and Flagyl started in ED; continue Low fiber diet IVF as above Tylenol and Zofran as needed #Type II DMholding metformin, SSI ordered. #COPDcontinue home inhalers, on 3-4L [place] oxygen at baseline. Stopped smoking Ja shala 2023. #Neoplasm of lung right lung adenocarcinoma s/p radiation 09/2023, under surveillance. #HTNcontinue verapamil, holding losartan as noted above. #mild aortic stenosis - noted on echocardiogram 04/2021 # chronic diastolic CHF with preserved LVEF 60% and grade I LV diastolic dysfunction (as noted on 05/02/2021, 2:07pm TTE, CARDS Dr. Frederic Olivo). Await repeat TTE in the 07/17/2025 am. VTE ppx: SCDs low risk Dispo: med/tele - possible dc 07/17 if laboratories improve Admission and Anticipated Discharge Date Admission Date: July 15, 2025 Subjective "I'm getting better today (07/16/2025). My belly doesn't hurt and I'm farting and passing some loose stools today. No nausea or vomiting." Review of Systems Constitutional: Negative for antecedent/coincident fevers, chills, diaphoresis, cough, wheeze, sore throat, hemoptysis, chest pains, palpitations, pleurisy, nausea, vomiting, diarrhea, abdominal pain, pelvic pain, hematemesis, hematochezia, melena, hematuria, dysuria, frequency, urgency, headaches, dizziness, lightheadedness, visual changes, hearing changes, weakness, falls, syncope, trauma, travel history, sick contacts, or food/drug ingestions novel or new. All other review of systems are reported as negative by the patient on 05/15/2025. Physical Exam Constitutional: General: Comfortable, cooperative, coherent. Wide awake and alert. Not confused, lethargic, or obtunded. Patient speaks in complete, fluent, and articulate sentences without pause, interruption, cough, or wheeze. HEENT: Normocephalic, atraumatic. Extra-ocular muscles intact. Pupils equally round and reactive to light. No nystagmus, gaze paresis, anisocoria, miosis, mydriasis, hyphema, chemosis, scleral injection, conjunctivitis, or pterygium. No otorrhea or rhinorrhea. No pharyngeal discharge or exudate. Neck: Supple, no stridor or bruit. Jugular venous pressure is estimated to be 3 cm above the sternal angle of Padilla, which is, by definition, 5 cm above the level of the right atrium. Hence, jugular venous pressure of 8 cm is not elevated on 07/16/2025. Lymphatics: No anterior/posterior cervical, infraclavicular, supraclavicular, axillary, epitrochlear, or inguinal adenopathy. Chest: Symmetric rise and fall with respirations. Non-tender to palpation. Lungs: Clear to auscultation and percussion. No audible expiratory wheeze, egophony, pectoriloquy, increase in tactile fremitus, or flatness/dullness to percussion at the bases. Heart: Regular rate and rhythm. S1 and S2 noted. No S3 or S4 summation gallop. No tripartite friction rub. Grade II/ early systolic murmur at left lower sternal border without radiation to the carotids, axilla, or back, and which remains invariant in regards to the respiratory cycle. Abdomen: Soft, non-tender, non-distended. No rebound, guarding, Sims's sign, or organomegaly. Bowel sounds auscultated in all 4 quadrants. Extremities: No clubbing, cyanosis, or edema. 2+ pedal pulses bilaterally. Skin: No decubitus ulcer, exanthem, or enanthem. Urology: No barone catheter. No purewick. No urethral discharge. Neurology: Alert and oriented in regards to person, place, time, and situation. DTR+. 5/5 motor strength in all 4 extremities, both proximally and distally. Psychiatry: No flat affect. No monotone voice. Smiles appropriately. Results & Data Results & Data Vital Signs (Past 12 Hours) Vital Signs Temp Pulse Pulse Resp BP Pulse Ox O2 Del Method 07/16/25 16:17 37.2 C 69 16 138/113 H 69 L Nasal Cannula 07/16/25 16:12 69 07/16/25 11:42 36.7 C 59 L 16 131/76 99 Nasal Cannula 07/16/25 09:00 67 07/16/25 09:00 Nasal Cannula 07/16/25 08:17 36.3 C L 58 L 16 131/75 91 Nasal Cannula O2 Flow Rate 09/27/25 16:17 3 07/16/25 16:12 07/16/25 11:42 3 07/16/25 09:00 07/16/25 09:00 3 07/16/25 08:17 3 Laboratory Results Abnormal lab results 07/16/25 07/16/25 07/16/25 Range/Units 00:03 05:53 17:05 RBC 3.16 L (4.20-5.40) M/uL Hgb 10.2 L (12.0-16.0) g/dl Hct 32.3 L (37.0-47.0) % MCV 102.2 H (80.0-100.0) fL MCHC 31.6 L (32.0-36.0) g/dL [place] # (Auto) 0.82 H (0.11-0.59) K/uL Chloride 108 H 109 H (98-107) mmol/L BUN 42 H 41 H (6-23) mg/dl Creatinine 1.64 H D 1.40 H (0.6-1.2) mg/dl BUN/Creatinine Ratio 25.6 H 29.3 H (10-20) Glucose 106 H (70-99(Fasting)) mg/dl POC Glucose 120 H (70-99) mg/dl PG Care Time/CCT Total # of Minutes Spent Total Time Spent with Patient: Total time spent is greater than 50% in coordination of care (as documented) at patient's floor/unit and/or counseling patient: Coding Level of Care Code 10563 SUB INP/OBS CARE 2/35MIN Diagnoses Hypomagnesemia E83.42 Acute kidney injury N17.9 Hyperkalemia E87.5 Diverticulitis K57.92
[2025-07-16] MEDS: MELATONIN 3 MG TAB PO PRN (22:09)
[2025-07-16] MEDS: ACETAMINOPHEN 325 MG TAB PO PRN (22:09)
[2025-07-16] MEDS: cefTRIAXone SODIUM 1,000 MG/50 ML BAG IV SCH (22:11)
[2025-07-16] MEDS: ONDANSETRON INJ 2 MG/ML 2 ML VIAL IV PRN (22:11)
[2025-07-17 08:13] LABS: Hematocrit (blood only) 33.6 % (37.0-47.0); Hemoglobin 10.0 g/dl (12.0-16.0); Immature Granulocytes # (auto) 0.01 K/uL (0.01-0.20); Immature Granulocytes % (auto) 0.2 %; Mean Corpuscular Hemoglobin 31.0 pg (25.0-34.0); Mean Corpuscular Volume 104.0 fL (80.0-100.0); Platelet Count 182 K/uL (130-400); RDW Standard Deviation 44.6 fL (36.4-46.3); Red Blood Count 3.23 M/uL (4.20-5.40); White Blood Count 5.10 K/ul (4.8-10.8)
[2025-07-17 09:16] LABS: Anion Gap 7.0 (3-11); Blood Urea Nitrogen 33.0 mg/dl (6-23); Calcium 8.6 mg/dl (8.6-10.3); Carbon Dioxide 25.0 mmol/L (21-32); Chloride 108.0 mmol/L (98-107); Creatinine Clr Calc Pharmacy 32.6 ml/min; Glucose 99.0 mg/dl (70-99(Fasting)); Potassium 5.0 mmol/L (3.5-5.1); Sodium 140.0 mmol/L (136-145)
--- NOTE | 2025-07-17 13:27 | XCELERA ---
[id number] \\[id number]
--- NOTE | 2025-07-17 16:53 | Hospitalist Progress Note ---
Date of Service July 17, 2025 Assessment & Plan (1) Hypomagnesemia: Plan: cf., Mg 1.1 mg/dL (07/15/2025, 10:13am). cf., Mg 1.2 mg/dL (07/15/2025, 4:31pm). cf., Mg 1.9 mg/dL (07/16/2025, 12:03am). cf., Mg 2.0 mg/dL (07/16/2025, 5:53am). Acute hypomagnesemia RESOLVED s/p supplementation with magnesium sulfate 1g IV x 2 doses (07/15/2025, 6:00pm, 6:28pm), magnesium sulfate 1g IV x 1 dose (07/16/2025, 12:24am). Of note, etiology of acute hypomagnesemia was probably due to diarrheal stool losses of magnesium in the setting of acute diverticulitis involving the ascending colon near the hepatic flexure. (2) Acute kidney injury: Plan: cf., BUN 36, creatinine 1.42 (07/15/2025, 10:13am). cf., BUN 44, creatinine 1.94 (07/15/2025, 4:31pm). cf., BUN 42, creatinine 1.64 (07/16/2025, 12:03am). cf., BUN 41, creatinine 1.40 (07/16/2025, 5:53am). cf., BUN 33, creatinine 1.24 (07/17/2025, 7:49am). cf., CKD stage III with baseline creatinine range, 1.30 - 1.35 mg/dL (02/18/2025 - 06/01/2025). Acute kidney injury RESOLVED s/p rehydration therapy with 500 mL of 0.9% NS @ 80 mL/hr (07/15/2025, 7:27pm), 2 liters of lactated Ringers @ 125 mL/hr (07/16/2025, 3:02am, 12:34pm) and 1 liter of 0.9% NS @ 71 mLhr (07/17/2025, 4:53pm), based on a delivery rate of 1 mL of 0.9% NS per kg of body weight per hour, and a body weight of 70.8 kg. I will check repeat creatinine level in the 07/18/2025 am. Of note, etiology of acute kidney injury is probably due to diarrheal stool losses of water in the setting of acute diverticulitis involving the ascending colon near the hepatic flexure. (3) Hyperkalemia: Plan: cf., K 5.5 mmol/L (07/15/2025, 10:13am). cf., K 5.6 mmol/L (07/15/2025, 4:31pm). cf., K 5.1 mmol/L (07/16/2025, 12:03am). cf., K 5.1 mmol/L (07/16/2025, 5:53am). cf., K 5.0 mmol/L (07/17/2025, 7:49am). Acute hyperkalemia RESOLVED s/p calcium gluconate 1g IV x 1 dose (07/15/2025, 6:28pm), rehydration therapy with 500 mL of 0.9% NS @ 80 mL/hr (07/15/2025, 7:27pm), 2 liters of lactated Ringers @ 125 mL/hr (07/16/2025, 3:02am, 12:34pm) and 1 liter of 0.9% NS @ 71 mLhr (07/17/2025, 4:53pm), based on a delivery rate of 1 mL of 0.9% NS per kg of body weight per hour, and a body weight of 70.8 kg. Of note, etiology of acute hyperkalemia was probably due to acute kidney injury. (4) Diverticulitis: Plan: cf., WBC 8.54, N73 L17 M10 (07/15/2025, 4:31pm). cf., WBC 6.67, N65 L19 M12 E3 (07/16/2025, 5:53am). cf., WBC 5.10, N61 L25 M10 E3 B1 (07/17/2025, 7:49am). cf., CT abd/pelvis without IV contrast (07/15/2025, 6:01pm): 1. Question of focal area of diverticulitis involving the ascending colon near the hepatic flexure. 2. Additional diverticulosis changes most pronounced in the region of the sigmoid colon. Acute diverticulitis involving ascending colon near hepatic flexure is RESOLVING well with empiric antibiotics: cf., ceftriaxone 2g IV x 1 dose (07/15/2025, 9:35pm). cf., ceftriaxone 1g IV x 1 dose (07/16/2025, 10:11pm). cf., flagyl 500mg IV q8 x 5 doses (07/16/2025, 5:33am, 1:53pm, 10:47pm; 07/17/2025, 5:39am, 2:54pm). Check vitals, abdominal exam in the 07/18/2025 am. Of final note, I advised the patient to undergo screening colonoscopy in 6-8 weeks, once PRESUMED acute diverticulitis involving the ascending colon near the hepatic flexure has had sufficient time to resolve with antibiotic treatment as stated above, in order to rule out colon carcinoma that can be masquerading as PRESUMED acute diverticulitis involving the ascending colon near the hepatic flexure. Patient reports that she will comply with this recommendation. Plan [id number] female with past medical history of DNR/DNI @ home, former tobacco abuse with subsequent diagnosis of chronic hypoxic respiratory failure due to end-stage COPD on 3-4 liters/minute O2 via nasal cannula at home, and right lung carcinoma s/p XRT (09/2023), type II DM, CKD stage III with baseline creatinine range, 1.30 - 1.35 mg/dL (02/18/2025 - 06/01/2025), GERD, rheumatic fever, and chronic diastolic CHF with preserved LVEF 60% and grade I LV diastolic dysfunction (as noted on 05/02/2021, 2:07pm TTE, CARDS Dr. Frederic Olivo). 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 CT abd/pelvis without IV contrast (07/15/2025) revealed acute diverticulitis involving the ascending colon near the hepatic flexure. #hypomagnesemiamag 1.2, chronically depleted and patient has been following with nephrology. Likely 2/2 chronic GI losses with chronic diarrhea. Total of 3G IV magnesium continue magnesium supplement Repeat magnesium midnight and with a.m. labs #JUSTIN/hyperkalemiaCr 1.42 -> 1.94, K+ 5.6, BUN 44. Possibly in the setting of acute dehydration/hypovolemia. EKG does not show any T wave changes. Does endorse dysuria and lower abdominal pain, UA ordered. - 500 mL NSS in ED followed by LR at 125 mL/hr x 2 L Calcium 1G IV in the ED Repeat BMP in the 07/17/2025 am. monitor telemetry for any arrhythmia continue holding OFF losartan and metformin; patient stated no longer on diuretics since 05/2025 #DiverticulitisAP CT showed concern for acute diverticulitis status in ascending colon near hepatic flexure. No leukocytosis, afebrile. Patient with worsening of chronic diarrhea. Rocephin and Flagyl started in ED; continue Low fiber diet IVF as above Tylenol and Zofran as needed #Type II DMholding metformin, SSI ordered. #COPDcontinue home inhalers, on 3-4L NC oxygen at baseline. Stopped smoking October 2023. #Neoplasm of lung right lung adenocarcinoma s/p radiation 09/2023, under surveillance. #HTNcontinue verapamil, holding losartan as noted above. #mild aortic stenosis - noted on echocardiogram 04/2021 # chronic diastolic CHF with preserved LVEF 60% and grade I LV diastolic dysfunction (as noted on 05/02/2021, 2:07pm TTE, CARDS Dr. Frederic Olivo). Await repeat TTE in the 07/17/2025 am. VTE ppx: SCDs low risk Dispo: med/tele - possible dc 07/17 if laboratories improve Admission and Anticipated Discharge Date Admission Date: July 15, 2025 Subjective "I'm getting better today (07/17/2025). My belly doesn't hurt at all, and I'm farting and passing some loose stools today. No nausea or vomiting at all." Review of Systems Constitutional: Negative for antecedent/coincident fevers, chills, diaphoresis, cough, wheeze, sore throat, hemoptysis, chest pains, palpitations, pleurisy, nausea, vomiting, abdominal pain, pelvic pain, hematemesis, hematochezia, melena, hematuria, dysuria, frequency, urgency, headaches, dizziness, lightheadedness, visual changes, hearing changes, weakness, falls, syncope, trauma, travel history, sick contacts, or food/drug ingestions novel or new. All other review of systems are reported as negative by the patient on 07/17/2025. Physical Exam Constitutional: General: Comfortable, cooperative, coherent. Wide awake and alert. Not confused, lethargic, or obtunded. Patient speaks in complete, fluent, and articulate sentences without pause, interruption, cough, or wheeze. HEENT: Normocephalic, atraumatic. Extra-ocular muscles intact. Pupils equally round and reactive to light. No nystagmus, gaze paresis, anisocoria, miosis, mydriasis, hyphema, chemosis, scleral injection, conjunctivitis, or pterygium. No otorrhea or rhinorrhea. No pharyngeal discharge or exudate. Neck: Supple, no stridor or bruit. Jugular venous pressure is estimated to be 3 cm above the sternal angle of Padilla, which is, by definition, 5 cm above the level of the right atrium. Hence, jugular venous pressure of 8 cm is not elevated on 07/17/2025. Lymphatics: No anterior/posterior cervical, infraclavicular, supraclavicular, axillary, epitrochlear, or inguinal adenopathy. Chest: Symmetric rise and fall with respirations. Non-tender to palpation. Lungs: Clear to auscultation and percussion. No audible expiratory wheeze, egophony, pectoriloquy, increase in tactile fremitus, or flatness/dullness to percussion at the bases. Heart: Regular rate and rhythm. S1 and S2 noted. No S3 or S4 summation gallop. No tripartite friction rub. Grade II/ early systolic murmur at left lower sternal border without radiation to the carotids, axilla, or back, and which remains invariant in regards to the respiratory cycle. Abdomen: Soft, non-tender, non-distended. No rebound, guarding, Sims's sign, or organomegaly. Bowel sounds auscultated in all 4 quadrants. Extremities: No clubbing, cyanosis, or edema. 2+ pedal pulses bilaterally. Skin: No decubitus ulcer, exanthem, or enanthem. Urology: No barone catheter. No purewick. No urethral discharge. Neurology: Alert and oriented in regards to person, place, time, and situation. DTR+. 5/5 motor strength in all 4 extremities, both proximally and distally. Psychiatry: No flat affect. No monotone voice. Smiles appropriately. Results & Data Results & Data Vital Signs (Past 12 Hours) Vital Signs Temp Pulse Pulse Resp BP Pulse Ox O2 Del Method 07/17/25 15:49 36.7 C 51 L 16 135/72 96 Nasal Cannula 07/17/25 15:36 49 L 07/17/25 11:59 36.5 C 99 H 16 108/72 92 Nasal Cannula 07/17/25 10:00 Nasal Cannula 07/17/25 08:38 36.4 C L 73 16 112/63 93 Room Air 07/17/25 07:14 52 L O2 Flow Rate 07/17/25 15:49 3 07/17/25 15:36 07/17/25 11:59 3 07/17/25 10:00 2 07/17/25 08:38 07/17/25 07:14 Laboratory Results WBC 8.54, N73 L17 M10 (07/15/2025, 4:31pm). WBC 6.67, N65 L19 M12 E3 (07/16/2025, 5:53am). WBC 5.10, N61 L25 M10 E3 B1 (07/17/2025, 7:49am). Hb 12.2, MCV 102.2, MCHC 32.2 (07/15/2025, 4:31pm). Hb 10.2, MCV 102.2, MCHC 31.6 (07/16/2025, 5:53am). Hb 10.0, MCV 104.0, MCHC 29.8 (07/17/2025, 7:49am). BUN 36, creatinine 1.42 (07/15/2025, 10:13am). BUN 44, creatinine 1.94 (07/15/2025, 4:31pm). BUN 42, creatinine 1.64 (07/16/2025, 12:03am). BUN 41, creatinine 1.40 (07/16/2025, 5:53am). BUN 33, creatinine 1.24 (07/17/2025, 7:49am). K 5.5 mmol/L (07/15/2025, 10:13am). K 5.6 mmol/L (07/15/2025, 4:31pm). K 5.1 mmol/L (07/16/2025, 12:03am). K 5.1 mmol/L (07/16/2025, 5:53am). K 5.0 mmol/L (07/17/2025, 7:49am). Mg 1.1 mg/dL (07/15/2025, 10:13am). Mg 1.2 mg/dL (07/15/2025, 4:31pm). Mg 1.9 mg/dL (07/16/2025, 12:03am). Mg 2.0 mg/dL (07/16/2025, 5:53am). Diagnostic Findings Portable CXR (07/15/2024, 4:20pm): 1. No infiltrate, effusion, cardiomegaly, pulmonary vascular congestion, or pneumothorax. CT abd/pelvis without IV contrast (07/15/2025, 6:01pm): 1. Question of focal area of diverticulitis involving the ascending colon near the hepatic flexure. 2. Additional diverticulosis changes most pronounced in the region of the sigmoid colon. TTE (07/17/2025, 7:07am): 1. LVEF 60-65%. No regional wall motion abnormalities. Grade I LV diastolic dysfunction. 2. RV normal size and systolic function. 3. LA/RA sizes normal. No ASD, but resolution does not permit assessment for PFO. 4. No AR. Mild with dimensionless index 0.38. 5. No AR. No PS. 6. No MR. No MS. 7. Trace TR. No TS. 8. Aortic root normal size. IVC size and collapsibility with sniff indicates normal RAP 3mm Hg. 9. No pericardial effusion. (as per CARDS Dr. He Calvin). CT chest with IV contrast (07/17/2025, 4:52pm): (to evaluate SOB in patient with PMH of former tobacco abuse with subsequent diagnosis of chronic hypoxic respiratory failure due to end-stage COPD, now on 3-4 liters/minute O2 via nasal cannula [id number] at home, and stage I R lung CA, diagnosed ~1.5 years ago, no resection, no chemo, only XRT for 4-5 weeks). PG Care Time/CCT Total # of Minutes Spent Total Time Spent with Patient: Total time spent is greater than 50% in coordination of care (as documented) at patient's floor/unit and/or counseling patient: Coding Level of Care Code 66845 SUB INP/OBS CARE 2/35MIN Diagnoses Hypomagnesemia E83.42 Acute kidney injury N17.9 Hyperkalemia E87.5 Diverticulitis K57.92
[2025-07-17] MEDS: SODIUM CHLORIDE 0.9% 1,000 ML IV ONE (17:33)
[2025-07-17] MEDS: OPTIRAY 320 100ml IV ONE (21:05)
--- NOTE | 2025-07-17 21:44 | Electrocardiogram Report ---
Test Reason : Blood Pressure : */* mmHG Vent. Rate : 94 BPM Atrial Rate : 94 BPM P-R Int : 154 ms QRS Dur : 82 ms QT Int : 316 ms P-R-T Axes : 75 -27 79 degrees QTcB Int : 395 ms Normal sinus rhythm Septal infarct (cited on or before 14-Aug-2023) Abnormal ECG When compared with ECG of 09-Nov-2023 16:38, Questionable change in initial forces of Septal leads Confirmed by He Calvin ([id number]) on 07/17/2025 9:44:14 PM Referred By: Confirmed By: He Calvin
--- NOTE | 2025-07-17 23:48 | CT Scan Report ---
Exam(s): CT CHEST With Contrast IV Amt: 90 ml optiray 320 EXAM: CT Chest With Intravenous Contrast CLINICAL HISTORY: Reason for exam: SOB in patient with stage I right lung CA. TECHNIQUE: Axial computed tomography images of the chest with intravenous contrast. CTDI is 19.89 mGy and DLP is 719.59 mGy-cm. Automated exposure control was utilized for the study. A dose lowering technique was utilized adhering to the principles of ALARA. CONTRAST: Patient received 90 ml optiray 320 of IV contrast COMPARISON: No relevant prior studies available. FINDINGS: Lungs: Unremarkable. No mass. No consolidation. Pleural space: Unremarkable. No significant effusion. No pneumothorax. Heart: Unremarkable. No cardiomegaly. No significant pericardial effusion. There are left coronary artery calcifications. Bones/joints: Unremarkable. No acute fracture. Soft tissues: Unremarkable. Vasculature: The distal thoracic aorta is ectatic reaching 3.0 cm in diameter. No thoracic aortic aneurysm. Lymph nodes: Unremarkable. No enlarged lymph nodes. IMPRESSION: No acute findings in the chest. 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 Electronically signed by: Sunil Lucas MD 07/17/25 23:47 PM
[2025-07-18 10:13] LABS: Anion Gap 6.0 (3-11); Blood Urea Nitrogen 27.0 mg/dl (6-23); Calcium 8.6 mg/dl (8.6-10.3); Carbon Dioxide 25.0 mmol/L (21-32); Chloride 111.0 mmol/L (98-107); Creatinine Clr Calc Pharmacy 33.0 ml/min; Glucose 131.0 mg/dl (70-99(Fasting)); Potassium 4.6 mmol/L (3.5-5.1); Sodium 142.0 mmol/L (136-145)
[2025-07-18 11:47] VITALS: BP 130/65; PULSE 69; RESP 18; TEMP 98.1; O2SAT 93
--- NOTE | 2025-07-18 16:24 | Discharge Summary ---
Discharge Summary Date of Service July 18, 2025 Principal Dx & Hospital Course #1 = Principal Diagnosis (1) Hypomagnesemia: cf., Mg 1.1 mg/dL (07/15/2025, 10:13am). cf., Mg 1.2 mg/dL (07/15/2025, 4:31pm). cf., Mg 1.9 mg/dL (07/16/2025, 12:03am). cf., Mg 2.0 mg/dL (07/16/2025, 5:53am). Acute hypomagnesemia RESOLVED s/p supplementation with magnesium sulfate 1g IV x 2 doses (07/15/2025, 6:00pm, 6:28pm), magnesium sulfate 1g IV x 1 dose (07/16/2025, 12:24am). Of note, etiology of acute hypomagnesemia was probably due to diarrheal stool losses of magnesium in the setting of acute diverticulitis involving the ascending colon near the hepatic flexure. (2) Acute kidney injury: cf., BUN 36, creatinine 1.42 (07/15/2025, 10:13am). cf., BUN 44, creatinine 1.94 (07/15/2025, 4:31pm). cf., BUN 42, creatinine 1.64 (07/16/2025, 12:03am). cf., BUN 41, creatinine 1.40 (07/16/2025, 5:53am). cf., BUN 33, creatinine 1.24 (07/17/2025, 7:49am). cf., BUN 27, creatinine 1.22 (07/18/2025, 9:26am). cf., CKD stage III with baseline creatinine range, 1.30 - 1.35 mg/dL (02/18/2025 - 06/01/2025). Acute kidney injury RESOLVED s/p rehydration therapy with 500 mL of 0.9% NS @ 80 mL/hr (07/15/2025, 7:27pm), 2 liters of lactated Ringers @ 125 mL/hr (07/16/2025, 3:02am, 12:34pm) and 1 liter of 0.9% NS @ 71 mLhr (07/17/2025, 4:53pm), based on a delivery rate of 1 mL of 0.9% NS per kg of body weight per hour, and a body weight of 70.8 kg. Of note, etiology of acute kidney injury was probably due to diarrheal stool losses of water in the setting of acute diverticulitis involving the ascending colon near the hepatic flexure. (3) Hyperkalemia: cf., K 5.5 mmol/L (07/15/2025, 10:13am). cf., K 5.6 mmol/L (07/15/2025, 4:31pm). cf., K 5.1 mmol/L (07/16/2025, 12:03am). cf., K 5.1 mmol/L (07/16/2025, 5:53am). cf., K 5.0 mmol/L (07/17/2025, 7:49am). cf., K 4.6 mmol/L (07/18/2025, 9:26am). Acute hyperkalemia RESOLVED s/p calcium gluconate 1g IV x 1 dose (07/15/2025, 6:28pm), rehydration therapy with 500 mL of 0.9% NS @ 80 mL/hr (07/15/2025, 7:27pm), 2 liters of lactated Ringers @ 125 mL/hr (07/16/2025, 3:02am, 12:34pm) and 1 liter of 0.9% NS @ 71 mLhr (07/17/2025, 4:53pm), based on a delivery rate of 1 mL of 0.9% NS per kg of body weight per hour, and a body weight of 70.8 kg. Of note, etiology of acute hyperkalemia was probably due to acute kidney injury. (4) Diverticulitis: cf., WBC 8.54, N73 L17 M10 (07/15/2025, 4:31pm). cf., WBC 6.67, N65 L19 M12 E3 (07/16/2025, 5:53am). cf., WBC 5.10, N61 L25 M10 E3 B1 (07/17/2025, 7:49am). cf., CT abd/pelvis without IV contrast (07/15/2025, 6:01pm): 1. Question of focal area of diverticulitis involving the ascending colon near the hepatic flexure. 2. Additional diverticulosis changes most pronounced in the region of the sigmoid colon. Acute diverticulitis involving ascending colon near hepatic flexure is RESOLVING well with empiric antibiotics: cf., ceftriaxone 2g IV x 1 dose (07/15/2025, 9:35pm). cf., ceftriaxone 1g IV x 2 doses (07/16/2025, 10:11pm; 07/17/2025, 7:31pm). cf., flagyl 500mg IV q8 x 8 doses (07/16/2025, 5:33am, 1:53pm, 10:47pm; 07/17/2025, 5:39am, 2:54pm, 9:18pm; 07/18/2025, 5:22am, 1:00pm). Patient was subsequently discharged back to her home on 07/18/2025 with an electronic prescription for augmentin 875mg/125mg PO q12, #20 tablets, no refills, transmitted to her [id number], [address], [id number], [place] [address], on 07/18/2025, prior to hospital discharge back to her home. Patient was advised to take this antibiotic with food, to mitigate N/V associated with this antibiotic. Patient reports that she will comply with this recommendation. Of final note, I advised the patient to undergo screening colonoscopy in 6-8 weeks, once PRESUMED acute diverticulitis involving the ascending colon near the hepatic flexure has had sufficient time to resolve with antibiotic treatment as stated above, in order to rule out colon carcinoma that can be masquerading as PRESUMED acute diverticulitis involving the ascending colon near the hepatic flexure. Patient reports that she will comply with this recommendation. Plan [id number] female with past medical history of DNR/DNI @ home, former tobacco abuse with subsequent diagnosis of chronic hypoxic respiratory failure due to end-stage COPD on 3-4 liters/minute O2 via nasal cannula at home, and right lung carcinoma s/p XRT (09/2023), type II DM, CKD stage III with baseline creatinine range, 1.30 - 1.35 mg/dL (02/18/2025 - 06/01/2025), GERD, rheumatic fever, and chronic diastolic CHF with preserved LVEF 60% and grade I LV diastolic dysfunction (as noted on 05/02/2021, 2:07pm TTE, CARDS Dr. Frederic Olivo)(as affirmed on 07/17/2025, 1:28pm TTE, CARDS Dr. He Calvin) with preserved LVEF 60-65% and grade I LV diastolic dysfunction with interval development of mild aortic stenosis with dimensionless index 0.38, and no significant aortic regurgitation. Patient presented to [facility] ER on 07/15/2025, after referral by her pulping machine operator for a low magnesium, and patient was found to have Mg 1.1, K 5.5, and creatinine 1.42. CT abd/pelvis without IV contrast (07/15/2025) revealed acute diverticulitis involving the ascending colon near the hepatic flexure. Patient was subsequently admitted to the inpatient hospitalist service @ [facility] on 07/15/2025 with the following diagnoses: 1. Acute diverticulitis involving the ascending colon near the hepatic flexure. 2. Acute hypomagnesemia with admission Mg 1.1 mg/dL (07/15/2025, 10:13am). 3. Acute hyperkalemia with admission K 5.5 mmol/L (07/15/2025, 10:13am). 4. Acute kidney injury with admission BUN 36, creatinine 1.42 (07/15/2025, 10:13am), superimposed on CKD stage III with baseline creatinine range, 1.30 - 1.35 mg/dL (02/18/2025 - 06/01/2025). #DiverticulitisAP CT showed concern for acute diverticulitis status in ascending colon near hepatic flexure. No leukocytosis, afebrile. Patient with worsening of chronic diarrhea. Rocephin and Flagyl started in ED; continue Low fiber diet IVF as above Tylenol and Zofran as needed #hypomagnesemiamag 1.2, chronically depleted and patient has been following with nephrology. Likely 2/2 chronic GI losses with chronic diarrhea. Total of 3G IV magnesium continue magnesium supplement Repeat magnesium midnight and with a.m. labs #JUSTIN/hyperkalemiaCr 1.42 -> 1.94, K+ 5.6, BUN 44. Possibly in the setting of acute dehydration/hypovolemia. EKG does not show any T wave changes. Does endorse dysuria and lower abdominal pain, UA ordered. - 500 mL NSS in ED followed by LR at 125 mL/hr x 2 L Calcium 1G IV in the ED Repeat BMP in the 07/17/2025 am. monitor telemetry for any arrhythmia continue holding OFF losartan and metformin; patient stated no longer on diuretics since 05/2025 #Type II DMholding metformin, SSI ordered. #COPDcontinue home inhalers, on 3-4L NC oxygen at baseline. Stopped smoking October 2023. #Neoplasm of lung right lung adenocarcinoma s/p radiation 09/2023, under surveillance. #HTNcontinue verapamil, holding losartan as noted above. #mild aortic stenosis - noted on echocardiogram 04/2021 # chronic diastolic CHF with preserved LVEF 60% and grade I LV diastolic dysfunction (as noted on 05/02/2021, 2:07pm TTE, CARDS Dr. Frederic Olivo). Await repeat TTE in the 07/17/2025 am. VTE ppx: SCDs low risk Dispo: med/tele - possible dc 07/17 if laboratories improve Admission HPI Per Admitting Provider Patient is an 80-year-old female with past medical history of COPD, neoplasm of lung, on chronic oxygen therapy, type II DM, GERD, rheumatic fever, CKD. Patient presented after referral by her pulping machine operator for a low magnesium, found to have a magnesium level 1.2, JUSTIN (creatinine 1.94), and hyperkalemia (K+ 5.6). Diagnostic imaging also revealed acute diverticulitis. Patient seen at bedside. She stated that she has diarrhea phonically since she had her gallbladder removed in the 70s however over the past few days it has been slightly worse than normal. She takes Metamucil 4 times a day and takes Imodium as needed which she did have to take today. She also endorses some left-sided abdominal pain, however nontender at time of exam. She stated she has been shaking for 1 week but denies any muscles aches or pains. She denies any fevers, chills, chest pain. weakness, dyspnea on exertion at baseline, unchanged as well as a cough. She does endorse dysuria and lower abdominal pain, was concerned she had a UTI or kidney infection. UA ordered. She denies current nicotine use (quit in October 2024) or alcohol use. Uses oxygen at baseline between 3 to 4 L. She stated she took all of her morning medications however is due for her evening medications which includes losartan and her magnesium supplement. It was noted that she saw Dr. De La Rosa 06/13 and was started on magnesium chloride 71.5 mg twice daily and was discontinued off diuretics at this time. Patient stated she no longer takes HCTZ or spironolactone. She wishes to be DNR/DNI. She is s/p radiation for her lung neoplasm and this is currently under surveillance. Discharge Exam Constitutional General: Comfortable, cooperative, coherent. Wide awake and alert. Not confused, lethargic, or obtunded. Patient speaks in complete, fluent, and articulate sentences without pause, interruption, cough, or wheeze. HEENT: Normocephalic, atraumatic. Extra-ocular muscles intact. Pupils equally round and reactive to light. No nystagmus, gaze paresis, anisocoria, miosis, mydriasis, hyphema, chemosis, scleral injection, conjunctivitis, or pterygium. No otorrhea or rhinorrhea. No pharyngeal discharge or exudate. Neck: Supple, no stridor or bruit. Jugular venous pressure is estimated to be 3 cm above the sternal angle of Padilla, which is, by definition, 5 cm above the level of the right atrium. Hence, jugular venous pressure of 8 cm is not elevated on discharge date 07/18/2025. Lymphatics: No anterior/posterior cervical, infraclavicular, supraclavicular, axillary, epitrochlear, or inguinal adenopathy. Chest: Symmetric rise and fall with respirations. Non-tender to palpation. Lungs: Clear to auscultation and percussion. No audible expiratory wheeze, egophony, pectoriloquy, increase in tactile fremitus, or flatness/dullness to percussion at the bases. Heart: Regular rate and rhythm. S1 and S2 noted. No S3 or S4 summation gallop. No tripartite friction rub. Grade II/ early systolic murmur at left lower sternal border without radiation to the carotids, axilla, or back, and which remains invariant in regards to the respiratory cycle. Abdomen: Soft, non-tender, non-distended. No rebound, guarding, Sims's sign, or organomegaly. Bowel sounds auscultated in all 4 quadrants. Extremities: No clubbing, cyanosis, or edema. 2+ pedal pulses bilaterally. Skin: No decubitus ulcer, exanthem, or enanthem. Urology: No barone catheter. No purewick. No urethral discharge. Neurology: Alert and oriented in regards to person, place, time, and situation. DTR+. 5/5 motor strength in all 4 extremities, both proximally and distally. Psychiatry: No flat affect. No monotone voice. Smiles appropriately. Discharge Plan Discharge Items Patient Disposition: Home - Self-Care Reason For Visit: DIVERTICULITIS, JUSTIN, HYPERKALEMIA, HYPOMAGNESEMIA Discharge Diagnosis: 1. Acute diverticulitis involving the ascending colon near the hepatic flexure (as noted on 07/15/2025, 6:01pm CT abd/pelvis without IV contrast). RESOLVING well s/p ceftriaxone 2g IV x 1 dose (07/15/2025, 9:35pm), ceftriaxone 1g IV daily x 2 doses (07/16/2025, 10:11pm; 07/17/2025, 2:31pm), and flagyl 500mg IV q8 x 9 doses (07/15/2025, 10:05pm - 07/18/2025, 1:00pm). 2. Acute kidney injury with admitting BUN 44, creatinine 1.94 (07/15/2025, 4:31pm), superimposed on CKD stage III with baseline creatinine range, 1.30 - 1.35 mg/dL (02/18/2025 - 06/01/2025). RESOLVED with discharge creatinine 1.22 (07/18/2025, 9:26am). 3. Acute hyperkalemia with admitting K 5.5 mmol/L (07/15/2025, 10:13am) and repeat K 5.6 mmol/L (07/15/2025, 4:31pm). RESOLVED with discharge K 4.6 mmol/L (07/18/2025, 9:26am). 4. Acute hypomagnesemia with admitting Mg 1.1 mg/dL (07/15/2025, 10:13am). RESOLVED with discharge Mg 2.0 mg/dL (07/16/2025, 5:53am). Condition on Discharge: Fair Activity: Resume your previous activity Lifting: Gradually increase as tolerated Bathing: No limitations Exercise/Sports: Gradually increase as tolerated Driving/Machine Use: No limitations Weightbearing: Full weightbearing Non-emergency contact: Primary Care Provider Call non-emergency contact if: you have any medication questions Follow-up/Referrals: Augusto Romano DO [Primary Care Provider] - 07/25/25 11:30 am Diet: Heart Healthy Addtl Attending Provider Instructions: See your PCP Dr. Augusto Romano within 5-7 days of hospital discharge for routine follow up visit and to arrange for outpatient colonoscopy in 6-8 weeks, once KS ESUMED acute diverticulitis involving the ascending colon near the hepatic flexure has had sufficient time to resolve with antibiotic treatment as stated above, in order to rule out colon carcinoma that can be masquerading as PRESUMED acute diverticulitis involving the ascending colon near the hepatic flexure. Pending Studies at Discharge: Yes Studies:: See your PCP Dr. Augusto Romano within 5-7 days of hospital discharge for routine follow up visit and to arrange for outpatient colonoscopy in 6-8 weeks, once PRESUMED acute diverticulitis involving the ascending colon near the hepatic flexure has had sufficient time to resolve with antibiotic treatment as stated above, in order to rule out colon carcinoma that can be masquerading as PRESUMED acute diverticulitis involving the ascending colon near the hepatic flexure. Stand-Alone Forms: [facility], Smoking Cessation Medications and DC Order Prescriptions: New amoxicillin-pot clavulanate 875-125 mg tablet 1 tab PO Q12H Qty: 20 0RF Continued Breztri Aerosphere 160-9-4.8 mcg/actuation HFA aerosol inhaler 2 inh inhalation BID Qty: 10.7 3RF spironolactone 25 mg tablet 25 mg PO QAM Qty: 90 3RF verapamil 240 mg capsule,ext rel. pellets 24 hr 240 mg PO QAM Qty: 90 3RF albuterol sulfate 90 mcg/actuation HFA aerosol inhaler 2 puff inhalation Q4H PRN (Reason: shortness of breath or wheezing) Qty: 8.5 3RF (DME) Portable Oxygen Misc See Rx Instructions .Route Qty: 1 0RF Rx Instructions: POC -Oxygen at 3lpm via NC with ambulation TWYLA 99 (DME) Oxygen Home Liters Per Minute See Rx Instructions .Route Qty: 1 0RF Rx Instructions: Home oxygen concentrator at 3lpm via NC with ambulation LON99 ipratropium bromide 0.02 % solution 2.5 ml inhalation Q6H PRN (Reason: shortness of breath or wheezing) Qty: 75 1RF Slow-Mag 71.5 mg tablet,delayed release (DR/EC) 71.5 mg PO BID Qty: 60 3RF ipratropium-albuterol 0.5 mg-3 mg(2.5 mg base)/3 mL solution for nebulization 3 ml inhalation Q6H PRN (Reason: shortness of breath or wheezing) 30 Days Qty: 180 4RF metformin 500 mg tablet 500 mg PO DAILY (DME) Accu-Chek Guide test strips Strip See Rx Instructions .Route Qty: 100 3RF Rx Instructions: twice daily escitalopram oxalate [Lexapro] 10 mg tablet 10 mg PO DAILY Qty: 30 2RF psyllium husk [Metamucil] 0.4 gram Capsule 1.2 g PO QAM Discontinued Prevnar 20 (PF) 0.5 mL syringe 0.5 ml IM ONCE Qty: 0.5 0RF Discharge Orders: Discharge Order (Routine); Ordered 07/18/25 Ordered By: Fareed Isidro Discharge Order- CHF (Routine); Ordered 07/18/25 Ordered By: Fareed Isidro Admission Data Admit Date/Time: 07/15/25 21:05 Attending Provider: Fareed Isidro Admit Provider: Andrew Chin Primary Care Provider: Augusto Romano Other Providers: Andrew Chin Other Interventions: Discharge Summary Assessment (RN) Last Done: 07/18/25 15:03 Hospital Stay Data Consultations 07/15/25 20:33 ED Decision to Admit Stat Diagnostic Imagining Performed 07/15/25 18:01 CT abd pelvis wo con Stat 07/17/25 16:52 CT chest diagnostic w con Urgent Pending Results Patient Have Any Pending Studies at Discharge: Yes Discharge Instructions Given to Patient (Per Discharging Provider) See your PCP Dr. Augusto Romano within 5-7 days of hospital discharge for routine follow up visit and to arrange for outpatient colonoscopy in 6-8 weeks, once PRESUMED acute diverticulitis involving the ascending colon near the hepatic flexure has had sufficient time to resolve with antibiotic treatment as stated above, in order to rule out colon carcinoma that can be masquerading as PRESUMED acute diverticulitis involving the ascending colon near the hepatic flexure. Total Time Total Time Spent Total Time Spent (In Minutes): 35 minutes. Of this time period, 19 minutes were spent in coordinating patient's discharge. Coding Level of Care Code 37400 INP/OBS DISCH >30 MIN Diagnoses Hypomagnesemia E83.42 Acute kidney injury N17.9 Hyperkalemia E87.5 Diverticulitis K57.92
[2025-07-18] MEDS ORDERED: metroNIDAZOLE 500 MG TAB PO SCH (22:00)
== END 2025-07-18 15:37 | disposition home or self-care (01) | DRG 392 ==
LOC: SUATTDRO → ED 16:13 → 2N 21:05 → SUATTDRO 21:05 → INTOOBSV 21:05 → 2N 22:57